=== PATIENT | female | born 1980 | race Caucasian/White ===

== ENCOUNTER → 2023-07-20 18:51 | Outpatient (REF) | payer OTHER, SELFPAY ==
--- NOTE | 2023-07-20 21:56 | ED.GENMED ---
History of Present Illness
General
Source: patient
Exam Limitations: none
Nursing documentation reviewed up to this point in time: agreed with
History of Present Illness
History of Present Illness:
Patient is a 43-year-old [id number] female who presents after having a difficult IV insertion while getting an MRI of her head for headaches that been going on 5 to 6 months. The MRI was not done. Patient developed coldness and numbness
in the right arm as well as pain. Patient states the arm is fine at this time. Patient has mild ache in her biceps.
Past History
Past History
ED Past Medical History: Psychiatric (depression), Other (seasonal allergies) and Other (Genital herpes)
Social History
Tobacco: Non-smoker
Personal:
Living: with family
Employment: Employed
Review of Systems
Review of Systems
All Other Systems: Not applicable
Phy Exam
Physical Exam
Physical Exam:
Physical Exam
General: No apparent distress, alert and appropriate, well nourished, well hydrated
HENT: Normocephalic, supple with no lymphadenopathy, no thyromegaly
Eyes: Clear sclera, conjuctiva without injection
Neuro: Alert and oriented x 3, CN II - XII intact, no motor focality, no cerebellar dysfunction
Skin: no rash
Psychiatric: well kept. interactive and cooperative
Extremities: No edema, cyanosis, tenderness, Good and equal peripheral pulses. Negative Sean's test. Axilla and supraclavicular areas nontender nonswollen. Mild tenderness over the proximal medial head of the right
bicep but no apparent deformity.
Course
Orders/Labs/Results
Orders:
Orders
07/20/23 19:02
[facility] W/[facility],CAD Routine
*Critical Care Note
Total Time (30-74mins, 75-104mins- exclusive of procedures): Not Applicable
Update Note
Update Note:
Patient discharged with verbal instructions to follow with her family doctor tomorrow. No particular therapy was needed.
ED Attending Note
-
Portions of this chart may have been created with voice recognition software.� Occasional wrong word or��sound alike� substitutions may have occurred due to the inherent limitations of voice recognition software.
Discharge Plan
-
Patient Disposition: Home (Routine Discharge)
Discharge Diagnosis/Procedures: Infiltrated IV
Condition: Good
Referrals:
Filomena Winters PA-C [Family Provider] -
Prescriptions:
No Action
levonorgestrel-ethinyl estrad [[place] 28] 0.15-0.03 mg Tablet
1 tab PO DAILY
alprazolam [Xanax] 0.5 mg Tablet
0.5 mg PO BID PRN (Reason: anxiety)
ascorbic acid (vitamin C) [Vitamin C] 500 mg Tablet
500 mg PO DAILY
vitamin B complex Tablet
1 tab PO DAILY
Discharge Date and Time
Print Language: SLOVENIAN
== END | disposition home or self-care (01) ==
LOC: WDC 18:51
PROVIDERS: ATTENDING PHYSICIAN Physician Assistant Medical
DX: G89.29 Other chronic pain (principal); R51.9 Headache, unspecified; Z12.31 Encounter for screening mammogram for malignant neoplasm of breast
CPT/HCPCS: 77063; 77067

== ENCOUNTER → 2024-04-12 07:38 | Outpatient (REF) | payer OTHER, SELFPAY | LOC: RAD 07:38 | PROVIDERS: ATTENDING PHYSICIAN Nurse Practitioner Family; FAMILY PHYSICIAN Family Medicine | DX: C69.31 Malignant neoplasm of right choroid (principal) | CPT/HCPCS: 71260; Q9967 ==

== ENCOUNTER → 2024-04-23 18:28 | Outpatient (REF) | payer OTHER, SELFPAY | LOC: MRI 3T 18:28 | PROVIDERS: ATTENDING PHYSICIAN Nurse Practitioner Family; FAMILY PHYSICIAN Family Medicine | DX: C69.31 Malignant neoplasm of right choroid (principal) | CPT/HCPCS: 74183; A9581 ==

== ENCOUNTER → 2024-07-31 18:59 | Outpatient (REF) | payer OTHER, SELFPAY | LOC: WDC 18:59 | PROVIDERS: ATTENDING PHYSICIAN Physician Assistant Medical; REFERRING PHYSICIAN Obstetrics & Gynecology | DX: Z12.31 Encounter for screening mammogram for malignant neoplasm of breast (principal) | CPT/HCPCS: 77063; 77067 ==

== ENCOUNTER → 2024-09-24 15:39 | Outpatient (REF) | payer OTHER, SELFPAY | LOC: MRI 3T 15:39 | PROVIDERS: ATTENDING PHYSICIAN Nurse Practitioner Family; FAMILY PHYSICIAN Family Medicine | DX: C69.31 Malignant neoplasm of right choroid (principal) | CPT/HCPCS: 74183; A9581 ==

== ENCOUNTER → 2024-10-19 07:32 | Outpatient (REF) | payer OTHER, SELFPAY | LOC: PAVMRI 07:32 | PROVIDERS: ATTENDING PHYSICIAN Physician Assistant Medical | DX: R51.9 Headache, unspecified (principal); G89.29 Other chronic pain | CPT/HCPCS: 70553; A9575 ==

== ENCOUNTER → 2025-01-08 19:10 | Outpatient (REF) | payer OTHER, SELFPAY | LOC: MRI 3T 19:10 | PROVIDERS: ATTENDING PHYSICIAN Surgery; FAMILY PHYSICIAN Physician Assistant Medical | DX: R92.8 Other abnormal and inconclusive findings on diagnostic imaging of breast (principal); Z91.89 Other specified personal risk factors, not elsewhere classified | CPT/HCPCS: 77049; A9585 ==

== ENCOUNTER → 2025-03-28 17:43 | Outpatient (REF) | payer OTHER, SELFPAY | LOC: MRI 3T 17:43 | PROVIDERS: ATTENDING PHYSICIAN Nurse Practitioner Family; FAMILY PHYSICIAN Physician Assistant Medical | DX: C69.31 Malignant neoplasm of right choroid (principal) | CPT/HCPCS: 74183; A9581 ==

== ENCOUNTER → 2025-04-01 16:22 | Outpatient (REF) | payer OTHER, SELFPAY | LOC: RAD 16:22 | PROVIDERS: ATTENDING PHYSICIAN Nurse Practitioner Family; FAMILY PHYSICIAN Family Medicine | DX: C69.31 Malignant neoplasm of right choroid (principal) | CPT/HCPCS: 71260; Q9967 ==